=== PATIENT | female | born 2000 | race Caucasian/White ===

== ENCOUNTER → 2019-04-20 | Outpatient (CLI) | payer OTHER | LOC: MC.RAD 14:15 | DX: R22.32 Localized swelling, mass and lump, left upper limb (principal) ==

== ENCOUNTER 2019-11-21 20:56 | Emergency (ER) | payer MEDICAID ==
[~2019-11-21] VITALS: Ht 182.9 cm; Wt 113.2 kg
[2019-11-21] MEDS ORDERED: PRENATAL TABLET PO (21:04)
[2019-11-21 21:49] LABS: BASO # 0.1 (0.0-0.2); BASO % 0.6 % (0.0-2.0); EOS # 0.2 (0.0-0.7); EOS % 1.2 % (0-4.0); GRAN # 7.5 (1.4-6.5); GRAN % 61.2 % (42.2-75.2); HEMOGLOBIN 12.2 g/dl (12.5-16.0); LYMPH # 3.8 (1.2-3.4); MEAN CELL VOLUME 83 fl (80.0-100.0); MEAN CORPUSCULAR HEMOGLOBIN 28 pg (27.0-31.0); MEAN CORPUSCULAR HGB CONC 34 g/dl (33.0-37.0); MONO # 0.7 (0.1-0.6); MONO % 5.6 % (1.7-9.3); PLATELET COUNT 378 K/mm3 (130-400); RED BLOOD COUNT 4.35 M/mm3 (4.10-5.30)
[2019-11-21 21:50] LABS: HEMATOCRIT 36.2 % (37.0-47.0)
[2019-11-21 22:00] LABS: ALBUMIN 4.3 gm/dL (3.5-5.0); BILIRUBIN,TOTAL 0.2 mg/dL (0.0-1.0); CALCIUM 9.2 mg/dL (8.4-10.2); CREATININE, serum 0.43 (0.52-1.25); POTASSIUM 3.3 mmol/L (3.4-5.0); TOTAL PROTEIN 7.1 gm/dL (6.4-8.2)
[2019-11-21 22:51] VITALS: BP 127/63; PULSE 82; TEMP 97.3
== END 2019-11-21 22:51 | disposition home or self-care (01) ==
LOC: COL.ER 20:56
PROVIDERS: Emergency Medicine
DX: O99.351 Diseases of the nervous system complicating pregnancy, first trimester (principal); R20.0 Anesthesia of skin; Z3A.09 9 weeks gestation of pregnancy
CPT/HCPCS: J1200; J7030